=== PATIENT | male | born 1980 | race Caucasian/White ===

== ENCOUNTER 2019-10-31 21:21 | Emergency (ER) | payer SELFPAY ==
[2019-10-31 21:39] VITALS: BP 100/65; PULSE 96; RESP 18; TEMP 36.6; O2SAT 99; BMI 22.9
--- NOTE | 2019-10-31 21:57 | W.ED.GENADLT ---
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 He states starting this afternoon he is having cramps all over and severe muscle pains. He states he feel like he got overheated. He denies losing consciousness. He states symptoms have improved since getting out of heat but still is having muscle cramps. Onset (ago): hour(s) Associated symptoms: Deny chest pain, dyspnea, headache(s), nausea, rash or vomiting Review of Systems Const: Denies: fever(s), chills, body aches or change in appetite Eyes: Denies: blurry vision or eye discomfort ENMT: Denies: throat pain or dental pain Card: Denies: chest pain Resp: Denies: dyspnea GI: Denies: abdominal pain, nausea, vomiting or diarrhea : Denies: dysuria Musc: Reports: joint pain and muscle cramps Skin/Breast: Denies: rash Neuro: Denies: headache(s) Psych: Denies: depression Amrik/Lymph: Denies: easy bruising All/Imm: Denies: urticaria PFSH ED PFSH: Social History Smoking and tobacco status: current every day smoker smokeless tobacco Physical Exam Const: COMMON NORMALS: no acute distress, patient oriented x3 and healthy appearing HENMT: COMMON NORMALS: normocephalic and atraumatic HEAD & SCALP: normocephalic and atraumatic Eye: COMMON NORMALS: Equal, round and reactive pupils present and EOMs intact bilaterally PUPIL: Yes Equal, round and reactive pupils present Neck/C-Spine: COMMON NORMALS: full ROM and supple Chest: COMMONS NORMALS: normal inspection of the chest and normal palpation of entire chest wall Resp: COMMON NORMALS: normal respiratory effort, No retractions, No use of accessory muscles and clear to auscultation bilaterally AUSCULTATION: clear to auscultation bilaterally Cardio: COMMON NORMALS: regular rate, regular rhythm and No murmurs present (Cardio) RATE: regular rate RHYTHM: regular rhythm GI: COMMON NORMALS: Normal to inspection, nondistended, normoactive bowel sounds present, Soft to palpation, non-tender and no masses PALPATION: Yes Soft to palpation Extremity: COMMON NORMALS: normal to inspection and full ROM Neuro: COMMON NORMALS: patient oriented x3, moves all extremities and no focal motor deficits Psych: COMMON NORMALS: mental status grossly normal, Normal thought process present and cooperative THOUGHT PROCESS: Normal thought process present Skin: COMMON NORMALS: no rashes or lesions noted and no wounds GENERAL SKIN EXAM: no rashes or lesions noted Course Vital Signs: Vital signs: Vital Signs Temperature 97.8 F 10/31/19 21:39 Pulse Rate 89 10/31/19 22:08 Respiratory Rate 16 10/31/19 22:08 Blood Pressure 110/79 10/31/19 22:08 Pulse Oximetry 97 10/31/19 22:08 MDM - General Adult MDM Narrative: Medical decision making narrative: Patient presents with muscle cramps likely from heat exhaustion. Patient still making urine and feels much improved with IV fluids. He is to stay out of the heat next couple days and is to drink plenty of fluids. Patient is stable for discharge. He is to follow-up with his primary care doctor in 3 to 5 days return to the ER if worsening. He understands and agrees to the plan. Lab Data: Labs: Lab Results 10/31/19 10/31/19 Range/Units 22:00 22:00 WBC 10.8 H (4.0-10.0) 10^3/ uL RBC 5.94 H (4.1-5.3) 10^6/u L Hgb 17.5 H (11.7-16.6) g/dL Hct 50.6 (42.0-52.0) % MCV 85.2 (80-94) fL MCH 29.5 (28.0-34.0) pg MCHC 34.6 (30.0-36.0) g/dL RDW 11.6 L (12.1-15.1) % Plt Count 411 H (130-400) 10^3/c mm MPV 9.2 (7.4-10.4) fL Neut % (Auto) 75.6 % Lymph % (Auto) 12.7 % [place] % (Auto) 10.7 % Eos % (Auto) 0.0 % Baso % (Auto) 0.6 % Neut # (Auto) 8.17 H (1.8-7.7) 10^3/u L Lymph # (Auto) 1.4 (0.8-4.8) 10^3/u L [place] # (Auto) 1.2 H (0.2-0.9) 10^3/u L Eos # (Auto) 0.0 (0.0-0.8) 10^3/u L Baso # (Auto) 0.1 (0.0-0.1) 10^3/u L Nucleated RBC % (a uto) 0 % Nucleated RBCs # 0.0 /100WBC Sodium 133 L (136-145) mmol/L Potassium 5.4 H (3.5-5.1) mmol/L Chloride 93 L (98-107) mmol/L Carbon Dioxide 25 (22-29) mmol/L Anion Gap 20.4 H (5-19) BUN 27 H (6-20) mg/dL Creatinine 2.2 H (0.7-1.2) mg/dL GFR Calculation 33.2 L (90-130) mL/min Glucose 100 (65-115) mg/dL Calculated Osmolal ity 273 L (285-295) mOsm/k g Calcium 10.3 (8.5-10.5) mg/dL Creatine Kinase 493 H* (39-308) U/L Discharge Plan Discharge Patient Disposition: Home Clinical Impression: Heat exhaustion Qualifiers: Encounter type: initial encounter Qualified Code(s): T67.5XXA - Heat exhaustion, unspecified, initial encounter Condition: Stable Prescriptions: No Action cephalexin [Keflex] 500 mg capsule 500 mg PO Q12H 10 Days Qty: 20 RF: 0 Discharge Orders: Discharge Order (Routine); Ordered 10/31/19 Ordered By: Shelly Wylie Discharge Diet: Advance as tolerated Discharge Activity: Resume usual activity Patient Instructions: Heat Exhaustion (ED) Stand Alone Forms: Work/School Release Coding Level of Care Code ED [employer] for [employer] Fwd Exam Comprehensive
[2019-10-31 22:08] VITALS: BP 110/79; PULSE 89; RESP 16; O2SAT 97
[2019-10-31] MEDS: sodium chloride 0.9% 1,000 ML 999 ML IV ×2 (22:15→22:53)
[2019-10-31 22:17] LABS: Basophils # 0.1 10^3/uL (0.0-0.1); Basophils % 0.6 %; Hematocrit 50.6 % (42.0-52.0); Hemoglobin 17.5 g/dL (11.7-16.6); Lymphocytes # 1.4 10^3/uL (0.8-4.8); Lymphocytes % 12.7 %; Mean Corpuscular HGB Conc 34.6 g/dL (30.0-36.0); Mean Corpuscular Hemoglobin 29.5 pg (28.0-34.0); Mean Corpuscular Volume 85.2 fL (80-94); Mean Platelet Volume 9.2 fL (7.4-10.4); Monocytes # 1.2 10^3/uL (0.2-0.9); Monocytes % 10.7 %; Neutrophils # 8.17 10^3/uL (1.8-7.7); Neutrophils % 75.6 %; Nucleated Red Blood Cells % 0 %; Platelet Count 411 10^3/cmm (130-400); Red Blood Count 5.94 10^6/uL (4.1-5.3); Red Cell Distribution Width 11.6 % (12.1-15.1); White Blood Count 10.8 10^3/uL (4.0-10.0)
[2019-10-31 22:38] LABS: Anion Gap 20.4 (5-19); Blood Urea Nitrogen 27 mg/dL (6-20); Calcium 10.3 mg/dL (8.5-10.5); Carbon Dioxide 25 mmol/L (22-29); Chloride 93 mmol/L (98-107); Glomerular Filtration Rate 33.2 mL/min (90-130); Glucose 100 mg/dL (65-115); Osmolality Calculated 273 mOsm/kg (285-295); Potassium 5.4 mmol/L (3.5-5.1); Sodium 133 mmol/L (136-145)
[2019-10-31 22:49] LABS: Creatine Phosphokinase 493 U/L (39-308)
[2019-10-31 23:51] VITALS: BP 124/78; PULSE 82; RESP 16; TEMP 36.5; O2SAT 99
== END 2019-10-31 23:54 | disposition home or self-care (01) ==
PROVIDERS: Emergency Provider Emergency Medicine
DX: T67.5XXA Heat exhaustion, unspecified, initial encounter (principal); F17.210 Nicotine dependence, cigarettes, uncomplicated
CPT/HCPCS: 12345; 36415; 80048; 82550; 85025; 96360; 96361; 99282; 99283; J7030

== ENCOUNTER → 2024-05-13 13:54 | Outpatient (BNVA) | payer SELFPAY | PROVIDERS: Visit Provider Family Medicine | DX: Z20.2 Contact with and (suspected) exposure to infections with a predominantly sexual mode of transmission (principal) | CPT/HCPCS: 81000; 87491; 87591 ==